=== PATIENT | female | born 1970 | race Caucasian/White ===

== ENCOUNTER 2018-10-21 09:09 | Outpatient (CLI) | payer OTHER | END 2018-10-21 19:26 | disposition home or self-care (01) | LOC: MRD 09:09 | DX: M19.071 Primary osteoarthritis, right ankle and foot (principal); M19.072 Primary osteoarthritis, left ankle and foot; M77.31 Calcaneal spur, right foot; R60.9 Edema, unspecified | CPT/HCPCS: 73630; 73660 ==